=== PATIENT | female | born 1980 | race American Indian/Alaskan Native ===

== ENCOUNTER 2017-12-06 13:07 | Emergency (ER) | payer SELFPAY ==
[2017-12-06 13:25] VITALS: BP 100/70
--- NOTE | 2017-12-06 15:47 | Emergency Department Report ---
Blank Doc - Documentation Documentation: Patient is a who presents to emergency department with vaginal spotting and abdominal pain. Patient states that she is approximately 3 months . Patient denies any vaginal discharge. Patient denies any trauma, increase activity, or recent sexual activity. Care will be turned over to the [facility]
[2017-12-06 16:08] LABS: Amorphous Crystals,Urine 1+; Bilirubin,Urine NEG (Negative); Blood,Urine NEG (Negative); Color,Urine Yellow (Yellow); Mucus,Urine FEW /HPF; Protein,Urine <15 mg/dL mg/dL (Negative); RBC,Urine < 1.0 /HPF (0.0-6.0); Urobilinogen,Urine < 2.0 mg/dL (<2.0); WBC,Urine < 1.0 /HPF (0.0-6.0)
[2017-12-06 16:14] LABS: Basophils % (Auto) 0.2 % (0.0-1.8); Eosinophils # (Auto) 0.1 K/mm3 (0.0-0.4); Eosinophils % (Auto) 1.5 % (0.0-4.3); Hematocrit 36.2 % (30.3-42.9); Hemoglobin 11.8 gm/dl (10.1-14.3); Lymphocytes # (Auto) 1.3 K/mm3 (1.2-5.4); Lymphocytes % (Auto) 21.1 % (13.4-35.0); Mean Corpuscular HGB Conc 33 % (30-34); Mean Corpuscular Hemoglobin 28 pg (28-32); Mean Corpuscular Volume 85 fl (79-97); Monocytes # (Auto) 0.3 K/mm3 (0.0-0.8); Monocytes % (Auto) 5.2 % (0.0-7.3); Platelet Count 186 K/mm3 (140-440); Red Blood Count 4.28 M/mm3 (3.65-5.03); Red Cell Distribution Width 14.1 % (13.2-15.2)
[2017-12-06 17:02] LABS: Alanine Aminotransferase 10 units/L (7-56); Albumin 3.6 g/dL (3.9-5); BUN/Creatinine Ratio 18; Blood Urea Nitrogen 7 mg/dL (7-17); Calcium 8.9 mg/dL (8.4-10.2); Hemolysis Index 9
--- NOTE | 2017-12-06 18:08 | Emergency Department Report ---
ED Female HPI - General Chief complaint: Abdominal Pain Stated complaint: SPOTTING BLOOD/ABD PAIN Time Seen by Provider: 12/06/17 15:40 Source: patient Mode of arrival: Ambulatory Limitations: No Limitations - History of Present Illness Initial comments: Patient is a 37-year-old at approximately 15 weeks gestation presents to ED complaining of vaginal spotting that started today. Patient also admits some low pelvic cramping. Patient states she has not seen LPN OR MEDICAL ASSISTANT this . Denies any trauma, intercourse, vaginal discharge or any other problems. She denies fevers/chills/nausea vomiting. MD Complaint: vaginal bleeding - Related Data Previous Rx's Medication Instructions Recorded Last Taken Type Acetaminophen [Acetaminophen ER 650 mg PO Q8HR PRN #30 tablet.er 12/06/17 Unknown Rx TAB] Allergies Allergy/AdvReac Type Severity Reaction Status Date / Time No Known Allergies Allergy Unverified 12/06/17 13:25 ED Review of Systems ROS: Stated complaint: SPOTTING BLOOD/ABD PAIN Other details as noted in HPI Constitutional: denies: chills, fever Eyes: denies: eye pain, eye discharge, vision change ENT: denies: ear pain, throat pain Respiratory: denies: cough, shortness of breath, wheezing Cardiovascular: denies: chest pain, palpitations Endocrine: no symptoms reported Gastrointestinal: denies: abdominal pain, nausea, vomiting, diarrhea Genitourinary: denies: urgency, dysuria, discharge Musculoskeletal: denies: back pain, joint swelling, arthralgia Skin: denies: rash, lesions Neurological: denies: headache, weakness, paresthesias Psychiatric: denies: anxiety, depression Hematological/Lymphatic: denies: easy bleeding, easy bruising ED Past Medical Hx - Past Medical History Previous Medical History?: No - Surgical History Past Surgical History?: No - Social History Smoking Status: Never Smoker Substance Use Type: None - Medications Home Medications: Home Medications Medication Instructions Recorded Confirmed Last Taken Type Acetaminophen [Acetaminophen ER 650 mg PO Q8HR PRN #30 tablet.er 12/06/17 Unknown Rx TAB] ED Physical Exam - General Limitations: No Limitations General appearance: alert, in no apparent distress - Head Head exam: Present: atraumatic, normocephalic - Eye Eye exam: Present: normal appearance - ENT ENT exam: Present: mucous membranes moist - Neck Neck exam: Present: normal inspection - Respiratory Respiratory exam: Present: normal lung sounds bilaterally. Absent: respiratory distress - Cardiovascular Cardiovascular Exam: Present: regular rate, normal rhythm. Absent: systolic murmur, diastolic murmur, rubs, gallop - GI/Abdominal GI/Abdominal exam: Present: soft, normal bowel sounds - Extremities Exam Extremities exam: Present: normal inspection - Back Exam Back exam: Present: normal inspection - Neurological Exam Neurological exam: Present: alert, oriented X3 - Psychiatric Psychiatric exam: Present: normal affect, normal mood - Skin Skin exam: Present: warm, dry, intact, normal color. Absent: rash ED Course Vital Signs 12/06/17 13:21 Temperature 98.6 F Pulse Rate 98 H Respiratory 16 Rate Blood Pressure 100/70 O2 Sat by Pulse 100 Oximetry ED Medical Decision Making - Lab Data Result diagrams: 12/06/17 16:01 12/06/17 16:01 - Radiology Data Radiology results: report reviewed, image reviewed FINAL REPORT EXAM: US OB gt; = 14 WEEKS FETUS HISTORY: bleeding TECHNIQUE: Ultrasound obstetrical transabdominal PRIORS: None. FINDINGS: Single live intrauterine gestation present. Cardiac activity present with heart rate of 132 beats per minute Cervix is 3.6 centimeters in length Amniotic fluid appears within normal limits The placenta is right lateral and there is no evidence for abruption. Placenta is not low lying biometric measurements were obtained Biparietal diameter 16 weeks 0 days Head circumference 15 weeks 6 days Abdominal circumference 15 weeks 0 days Femur length 15 weeks 6 days Based on today's exam estimated gestational age is 15 weeks 5 days with estimated date of delivery May 25, 2018 Noted is a shadowing echogenic focus within the myometrium consistent with a calcified uterine fibroid. IMPRESSION: Single live intrauterine gestation estimated at 15 weeks 5 days No evidence for placental abruption Calcified uterine fibroid noted Transcribed By: CARO Dictated By: SAMIR LAM MD Electronically Authenticated By: SAMIR LAM MD Signed Date/Time: 12/06/171805 - Medical Decision Making 37-year-old female presents to ED with threatened ED course: Pt received ultra sound, CBC, urinalysis, test and quantitative ED All labs within normal limits, quantitative elevated matching gestation age Patient states that bleeding is resolved when she is went into the bathroom to check Discussed the patient she will need to follow up with LPN OR MEDICAL ASSISTANT for care. Ultrasound shows IUP gestation at 16 weeks with 132 bpm, Cervical length 3cm. See reported above Vital signs normalized patient is in no acute distress. I discussed with the patient if follow-up with her LPN OR MEDICAL ASSISTANT. I discussed all labs and ultrasound findings with the patient. Discussed patient to increase hydration and take the vitamins. Discussed pelvic rest and no intercourse until follow-up with LPN OR MEDICAL ASSISTANT. I discussed with the patient that he if bleeding worsens or new symptoms develop to return to ED immediately Critical care attestation.: If time is entered above; I have spent that time in minutes in the direct care of this critically ill patient, excluding procedure time. ED Disposition Clinical Impression: Threatened in second trimester Normal IUP (intrauterine ) on ultrasound Qualifiers: Trimester: second trimester Qualified Code(s): Z34.92 - Encounter for supervision of normal , unspecified, second trimester Disposition: TO HOME OR SELFCARE Is pt being admited?: No Does the pt Need Aspirin: No Condition: Stable Instructions: Abdominal Pain (ED) Additional Instructions: Make sure to follow up with the primary care physician as discussed. Take all your medications as you've been prescribed. If you have any worsening symptoms or develop new symptoms please return to ED immediately. Prescriptions: Acetaminophen [Acetaminophen ER TAB] 650 mg PO Q8HR PRN #30 tablet.er PRN Reason: Pain Referrals: PRIMARY CAREMD [Primary Care Provider] - 3-5 Days TOMMY COLON MD [Staff Physician] - 3-5 Days MARCE COLON MD [Referring] - 3-5 Days [facility] [Provider Group] - 3-5 Days [facility] [Provider Group] - 3-5 Days Forms: Accompanied Note, Work/School Release Form(ED) Time of Disposition: 18:08
--- NOTE | 2017-12-06 18:13 | Ultrasound Report ---
FINAL REPORT EXAM: US OB > = 14 WEEKS FETUS HISTORY: bleeding TECHNIQUE: Ultrasound obstetrical transabdominal PRIORS: None. FINDINGS: Single live intrauterine gestation present. Cardiac activity present with heart rate of 132 beats per minute Cervix is 3.6 centimeters in length Amniotic fluid appears within normal limits The placenta is right lateral and there is no evidence for abruption. Placenta is not low lying biometric measurements were obtained Biparietal diameter 16 weeks 0 days Head circumference 15 weeks 6 days Abdominal circumference 15 weeks 0 days Femur length 15 weeks 6 days Based on today's exam estimated gestational age is 15 weeks 5 days with estimated date of delivery May 25, 2018 Noted is a shadowing echogenic focus within the myometrium consistent with a calcified uterine fibroid. IMPRESSION: Single live intrauterine gestation estimated at 15 weeks 5 days No evidence for placental abruption Calcified uterine fibroid noted
== END 2017-12-06 18:53 | disposition home or self-care (01) ==
LOC: ED 13:07
DX: O20.0 Threatened abortion (principal); Z3A.15 15 weeks gestation of pregnancy
CPT/HCPCS: 36415; 76805; 80053; 81001; 84702; 85025; 86850; 86900; 86901